=== PATIENT | male | born 1985 | race Asian ===

== ENCOUNTER 2019-05-04 03:06 | Emergency (ER) | payer BC, OTHER ==
[2019-05-04] MEDS: HYDROCODONE/APAP (5/325) TAB PO (04:26)
[2019-05-04] MEDS: KETOROLAC 30 MG INJ IM (04:27)
== END 2019-05-04 06:01 | disposition home or self-care (01) ==
LOC: FTE 03:06
DX: M25.571 Pain in right ankle and joints of right foot (principal)
CPT/HCPCS: 73610; 73610-RT; 73630; 96372; 99284-25